=== PATIENT | male | born 1990 | race Caucasian/White ===

== ENCOUNTER 2025-09-25 09:23 | Outpatient (OUT) | payer BC, SELFPAY ==
--- OUTSIDE RECORDS SUMMARY | 2025-09-25 09:31 | XMS_ITS | Patient Health Record ---
Author Organization [facility] [place] Address [address] [place] [address] Care Team Providers Care Surveyor Chain Helper Name Role Phone Mat Orantes Primary Care Provider Allergies No Known Allergies Reason For Referral No Information Medications Medication SIG (Take, Route, Frequency, Duration) Notes Start Date End Date Status Keppra 500 MG 1 tablet Orally every 12 hrs Active Social History Tobacco Use: Social History Observation Description Date Details (start date - stop date) Never Smoker NA - NA Tobacco Control (Standard) Question Answer Notes Tobacco use: Nonsmoker AUDIT-C (Standard) Question Answer Notes Did you have a drink containing alcohol in the p ast year? No Riwfvk4VklurbsjcxkfmfTuafupyq Problems Problem Type SNOMED Code ICD Code Onset Dates Problem Status W/U Status Risk Notes Problem Seizure (29530209) Seizure (R56.9) ActiveconfirmedProblemElevated blood pressure reading without diagnosis of hypertension (808728647)Borderline hypertension (R03.0)ActiveconfirmedProblem Well adult (299116950)Well adult (Z00.00)Activeconfirmed Vital Signs Blood pressure diastolic 94 mm Hg 09/25/2025 Rzwqxt14 in09/25/2025lood pressure cybeoyjg252 mm Hg09/25/20251491Tgqeek727.6 lbs 09/25/2025BMI34.35 kg/m209/25/2025 Encounters Encounter Location Date Provider Diagnosis [facility] [address] [place] [address] 09/25/2025 Mat Jaimealiza Well adult Z00.00 ; Seizure R56.9 and Borderline hypertension R03.0 Assessments Encounter Date Diagnosis (ICD Code) Assessment Notes Treatment Notes Treatment Clinical Notes Section Notes 09/25/2025 Well adult (ICD-10 - Z00.00) 09/25/2025Seizure (ICD-10 - R56.9)09/25/2025orderline hypertension (ICD-10 - R03.0) Plan Of Treatment Pending Test Test Name Order Date HEMOGLOBIN A1C (GLYCO) 09/25/2025 LIPID PANEL (CHOL/TRIG/HDL/LDL) 09/25/20 25 URIC ACID 09/25/2025 CMP (COMP MET ABEBE) w/eGFR CKD-EPI 2024 CBC WITH DIFF 09/25/2025 Insurance Providers Payer Name Payer Address Payer Phone Subscriber Number Group Number Insured Name Patient Relationship to Insured Coverage Start Date Coverage End Date ANTHEM ALIX [address] [place] [phone] [id number] Asmita Adler - patient is the insured Medical (General) History Medical History History ICD Code Seizure R56.9 Surgical History Surgery Date(Month/Year) denies Hospitalization History Reason Date(Month/Year) seizures
--- OUTSIDE RECORDS SUMMARY | 2025-09-25 09:31 | XMS_ITS | Clinical Summary ---
Author Organization [facility] Address [address], [address] [place] [address] Care Team Providers Care Medical Representative Name Role Phone Unavailable Primary Care Provider Unavailabl e Allergies No known active allergies Medications MedicationSigDispense QuantityRefillsLast FilledStart DateEnd DateStatus levETIRAcetam (KEPPRA) 500 MG tablet Indications:Seizure disorder (HCC)Take 1 tablet by mouth 2 times daily 180 tablet ctive Active Problems No known active problems Family History Medical HistoryRelationNameCommentsHeart DiseaseFatherHeart DiseaseMaternal GrandfatherBreast CancerMaternal GrandmotherCoronary Art DisPaternal Grandfather Coronary Art DisPaternal GrandmotherRelationNameStatusCommentsFatherAlive Maternal GrandfatherMaternal GrandmotherMotherAlivePaternal GrandfatherPaternal Grandmother Social History Tobacco UseTypesPacks/DayYears UsedDateSmoking Tobacco: NeverPassive Smoke Exposure: NeverSmokeless Tobacco: Never Tobacco Cessation:Counseling Given: Not Answered Alcohol UseStandard Drinks/WeekCommentsNot Currently0 (1 standard drink = 0.6 oz pure alcohol)rarelyAUDIT-CAnswerDate RecordedQ1: How often do you have a drink containing alcohol?Never12/13/2024Q2: How many drinks containing alcohol do you have on a typical day when you are drinking?Patient does not drink12/13/2024Q3: How often do you have six or more drinks on one occasion?Never12/13/2024 Interpersonal Safety Domain Source: IP Abuse ScreeningAnswerDate Recorded Physical hdpjuXgilvm71/08/2025Verbal ykrskKpefqd16/08/2025Emotional abuseDenies 12/13/2024Financial sdeeeJjemkx39/08/2025Sexual kmmvlZrvtyh49/08/2025Sex and Gender InformationValueDate RecordedSex Assigned at PddfdPemk96/02/2022 6:40 AM EDTLegal NdzBxos1112/15/2012 1:21 PM ESTGender KhccpmwcHrda14/02/2022 6:40 AM EDT Sexual ZvxekuazhfrRmfqekot82/02/2022 6:40 AM EDT Last Filed Vital Signs Vital SignReadingTime TakenCommentsBlood Igrjsozb492/8912/13/2024 2:43 AM EST Soxwv798112/13/2024 2:43 AM KQVIxgtrfutdkd67.8 ??C (98.2 ??F)12/13/2024 1:08 AM ESTRespiratory Wqvl890712/13/2024 2:13 AM ESTOxygen Gkjvzhkaqo222%12/13/2024 2:43 AM ESTInhaled Oxygen Concentration--Blobap15.8 kg (220 lb)12/13/2024 1:08 AM EST Hkunbe029.3 cm (5' 9 )12/13/2024 1:08 AM ESTBody Mass Index32.49012/13/2024 1:08 AM EST Plan of Treatment Health MaintenanceDue DateLast DoneCommentsDepression Hkqhnz3805/04/2001Varicella vaccine (1 of 2 - 13+ 2-dose series)2002HIV dpdxbr6405/04/2004Hepatitis C jzotxk2105/04/2007Hepatitis B vaccine (1 of 3 - 19+ 3-dose series)2008 Diabetes yzlzpj1405/04/2024Flu vaccine (#1)OVID-19 Vaccine ( season)2025DTaP/Tdap/Td vaccine (2 - Td or Tdap)09/01/2032 09/01/2022HPV vaccine (No Doses Required)CompletedHepatitis A vaccineAged OutNo longer eligible based on patient's age to complete this topicHib vaccineAged Out No longer eligible based on patient's age to complete this topicMeningococcal (ACWY) vaccineAged OutNo longer eligible based on patient's age to complete this topicMeningococcal B vaccineAged OutNo longer eligible based on patient's age to complete this topicPneumococcal 0-49 years VaccineAged OutNo longer eligible based on patient's age to complete this topicPolio vaccineAged OutNo longer eligible based on patient's age to complete this topic Insurance * Guarantor: Gary Adler TypeRelation to PatientDate of BirthPhone Billing AddressPersonal/LspdvgJwej1990 [address] [place] [phone] * Guarantor: Gary Adler TypeRelation to PatientDate of BirthPhone Billing AddressPersonal/XzmkyxCkwa1990 [address] [place] [phone]
--- OUTSIDE RECORDS SUMMARY | 2025-09-25 09:31 | XMS_ITS | Clinical Summary ---
Author Organization [facility] Address [address] [place] [address] Care Team Providers Care Biological Inspector Name Role Phone Erma Romo OD Unavailable [phone] Allergies No known active allergies Medications MedicationSigDispense QuantityRefillsLast FilledStart DateEnd DateStatus erythromycin (Romycin) 5 MG/GM ophthalmic ointment 4Active Social History Tobacco UseTypesPacks/DayYears UsedDateSmoking Tobacco: Never Tobacco Cessation:Counseling Given: Not Answered Sex and Gender InformationValueDate RecordedSex Assigned at BirthNot on file Legal DdlXfly3101/17/2023 6:44 PM EDTGender IdentityNot on fileSexual Orientation Not on file Plan of Treatment Not on file Insurance * Guarantor: Gary Adler TypeRelation to PatientDate of BirthPhone Billing AddressPersonal/KafdocLziw1990 [address] [address] Care Teams Team MemberRelationshipSpecialtyStart DateEnd Date Erma Romo OD [address] [place] [address] Referring PhysicianOptometry06/03/24
[2025-09-25 10:03] LABS: Hematocrit 42.3 % (42.0-54.0); Hemoglobin 15.0 g/dL (14.0-18.0); Immature Granulocytes Abs Auto 0.04 10^3/uL (0.00-0.03); Immature Granulocytes Pct Auto 0.3 % (0.0-0.5); Lymphocytes Absolute Auto 3.8 10^3/uL (1.2-3.8); Mean Corpuscular HGB Conc 35.5 g/dL (29.9-35.2); Mean Corpuscular Hemoglobin 29.6 pg (25.9-34.0); Mean Corpuscular Volume 83.4 fL (80.0-94.0); Platelet Count 272 10^3/uL (150-450); Red Blood Count 5.07 10^6/uL (4.70-6.10); White Blood Count 11.9 10^3/uL (4.0-11.0)
[2025-09-25 10:28] LABS: Alanine Aminotransferase 39 U/L (16-63); Albumin Globulin Ratio 1.3; Albumin Level 4.4 g/dL (3.4-5.0); Alkaline Phosphatase 75 U/L (46-116); Anion Gap 12.7; Aspartate Amino Transferase 24 U/L (15-37); Blood Urea Nitrogen 15.0 mg/dL (7.0-18.0); Calcium 9.1 mg/dL (8.5-10.1); Carbon Dioxide 28.3 mmol/L (21.0-32.0); Chloride 103 mmol/L (98-107); Cholesterol 175 mg/dL (<=200); Estimated GFR (African America >60 (>=60 mL/min/1.73m^2); Estimated GFR (Non-African Ame >60 (>=60 mL/min/1.73m^2); Globulin 3.5 g/dL; Glucose 96 mg/dL (74-106); HDL Cholesterol 39 mg/dL (40-60); Potassium 4.0 mmol/L (3.5-5.1); Sodium 140 mmol/L (136-145); Total Protein 7.9 g/dL (6.4-8.2); Triglycerides 166 mg/dL (<=150); Uric Acid 8.7 mg/dL (3.5-7.2); VLDL CHOLESTEROL 33.2 mg/dL
== END 2025-09-25 09:24 | disposition home or self-care (01) ==
LOC: LAB 09:28
PROVIDERS: PCP Family Medicine; Visit Provider Family Medicine
DX: Z00.00 Encounter for general adult medical examination without abnormal findings (principal)
CPT/HCPCS: 36415; 80053; 80061; 83036; 84550; 85025